=== PATIENT | female | born 1995 | race Caucasian/White ===

== ENCOUNTER 2022-10-12 19:10 | Emergency (ER) | payer MEDICAID ==
[~2022-10-12] VITALS: Ht 175.3 cm; Wt 88.0 kg
[2022-10-12 19:36] VITALS: BP 100/65
--- NOTE | 2022-10-12 21:01 | NUR ---
COLLES SPLINT APPLIED TO R. EXTREMITY, + CMS BEFORE AND AFTER APPLICATION.
--- NOTE | 2022-10-12 21:16 | NUR ---
Patient discharged with v/s stable. Written and verbal after care instructions given and explained. Patient verbalized understanding. Ambulatory with steady gait. All questions addressed prior to discharge. Advised to follow up with PMD.
== END 2022-10-12 21:16 | disposition home or self-care (01) ==
LOC: MED 19:10
DX: S52.591A Other fractures of lower end of right radius, initial encounter for closed fracture (principal); W01.0XXA Fall on same level from slipping, tripping and stumbling without subsequent striking against object, initial encounter; Y93.89 Activity, other specified; Y92.89 Other specified places as the place of occurrence of the external cause; Y99.8 Other external cause status
CPT/HCPCS: 73110; 99283